=== PATIENT | female | born 1980 | race Two or more races ===

== ENCOUNTER 2019-05-23 21:02 | Emergency (ER) | payer SELFPAY ==
[~2019-05-23] VITALS: Ht 172.7 cm; Wt 65.8 kg
[2019-05-23] MEDS ORDERED: DILANTIN100 MG ORAL (21:08)
--- NOTE | 2019-05-23 21:08 | Emergency Room Report ---
History of Present Illness General Chief Complaint: To Be Triaged Source: Patient Present Illness [facility] This is a 39-year-old female with history of seizure. She presents with chief complaint of seizure. She says she had a mild tonic-clonic seizure activity by an hour ago. No incontinence of bowel or urine. No oral trauma. She is been out of the Dilantin for the last week. She called 911. She said she just wanted Dilantin. Does not want vitals or blood work. Does not want anything else. Denies any fever chills but denies any nausea or vomiting. Denies any trauma. Nothing made it better. Nothing made it worse. She takes Dilantin 100 mg twice a day. Allergies: Coded Allergies: No Known Allergies (Unverified , 05/23/19) Patient History Past Medical History: see triage record, old chart reviewed, seizures Past Surgical History: other Pertinent Family History: none Social History: Denies: smoking Now: No Immunizations: other Reviewed Nursing Documentation: PMH: Agreed; PSxH: Agreed Review of Systems Eye: Denies: eye pain, blurred vision ENT: Denies: ear pain, nose congestion, throat swelling Respiratory: Denies: cough, shortness of breath Cardiovascular: Denies: chest pain, palpitations Gastrointestinal: Denies: abdominal pain, diarrhea, nausea, vomiting Musculoskeletal: Denies: back pain, joint pain Skin: Denies: rash Neurological: Denies: headache, numbness Endocrine: Denies: increased thirst, increased urine Hematologic/Lymphatic: Denies: easy bruising All Other Systems: negative except mentioned in HPI Physical Exam Vitals: Patient refused Sp02 EP Interpretation: reviewed, normal General Appearance: well appearing, no apparent distress, alert Head: normocephalic, atraumatic Eyes: bilateral eye PERRL, bilateral eye EOMI ENT: hearing grossly normal, normal pharynx Neck: full range of motion, supple, no meningismus Respiratory: chest non-tender, lungs clear, normal breath sounds Cardiovascular #1: regular rate, rhythm, no murmur Gastrointestinal: normal bowel sounds, non tender, no mass, no organomegaly, no bruit, non-distended Musculoskeletal: back normal, normal range of motion, gait/station normal Psychiatric: mood/affect normal Medical Decision Making Diagnostic Impression: Primary Impression: Seizure disorder ER Course Patient with seizure disorder. Dilantin loaded given. Will discharge home with Dilantin. Status: improved Disposition: HOME, SELF-CARE Condition: Stable Scripts Phenytoin Sodium Extended* (DILANTIN*) 100 Mg Capsule 100 MG ORAL TWICE A DAY, #60 CAP 0 Refills Prov: Anupam Harper MD 05/23/19 Additional Instructions: Take your seizure medication. Follow-up with your doctor in 7 days. Return if worse. Anupam Harper MD May 23, 2019 21:08
[2019-05-23] MEDS ORDERED: Phenytoin 1,000 MG in NS 275 ML IVPB ONE (21:15)
[2019-05-23] MEDS ORDERED: Phenytoin 100mg cap ORAL ONE (21:15)
== END 2019-05-23 22:00 | disposition home or self-care (01) ==
LOC: EDBD 21:02 → EMR 21:59
DX: G40.909 Epilepsy, unspecified, not intractable, without status epilepticus (principal)
CPT/HCPCS: 96374; 99284